=== PATIENT | male | born 1960 | race Caucasian/White ===

== ENCOUNTER 2016-11-13 10:15 | Emergency (ER) | payer MEDICAID, OTHER ==
[~2016-11-13] VITALS: Ht 182.9 cm; Wt 95.4 kg
[2016-11-13 11:18] LABS: HEMATOCRIT 49.6 % (39.2-51.8); HEMOGLOBIN 17.1 g/dL (13.7-18.0); WHITE BLOOD COUNT 4.7 x10^3/uL (3.4-10)
[2016-11-13] MEDS ORDERED: ONDANSETRON 2MG/ML, 2ML ONE (11:22)
[2016-11-13] MEDS ORDERED: LORazepam 2 MG/ML, 1ML ONE ×2 (11:23→12:38)
[2016-11-13 11:30] LABS: ASPARTATE AMINO TRANSFERASE 98 U/L (15-37); BLOOD UREA NITROGEN 24 mg/dL (7-18)
[2016-11-13] MEDS ORDERED: THIAMINE 100 MG in SODIUM CHLORIDE 0.9% 50 ML IVPB ONE (11:30)
[2016-11-13] MEDS ORDERED: SODIUM CHLORIDE FLUSH 10ML SYR IVF ONE (11:30)
[2016-11-13] MEDS ORDERED: ONDANSETRON 2MG/ML, 2ML IVPush ONE (11:30)
[2016-11-13] MEDS ORDERED: SODIUM CHLORIDE 0.9% 1,000ML IVBOLUS ONE (11:30)
[2016-11-13] MEDS: LORazepam 2 MG/ML, 1ML IVPush PRN ×2 (11:38→12:41)
[2016-11-13 13:08] VITALS: BP 135/89
== END 2016-11-13 13:10 | disposition home or self-care (01) ==
LOC: ED 12:03
DX: F10.239 Alcohol dependence with withdrawal, unspecified (principal); R45.4 Irritability and anger
CPT/HCPCS: 36415; 80053; 83690; 85025; 96365; 96375; 96376; 99284; J2060; J2405; J3411; J7030